=== PATIENT | female | born 1945 | race Caucasian/White ===

== ENCOUNTER 2023-09-01 15:34 | Emergency (ER) | payer MEDICARE, SELFPAY ==
[2023-09-01 15:38] VITALS: BP 144/91
[2023-09-01] MEDS: NORCO 5/325 1 TABLET PO (19:22)
--- NOTE | 2023-09-01 20:31 | ED.MUSCINJ ---
HPI-Injury
General
Chief Complaint: Musculo-Skeletal Complaint
Source: patient
Exam Limitations: none
Time Seen by Provider: 09/01/23 17:58
Nursing documentation reviewed up to this point in time: agreed with
Travel History
Have you had any contact with someone who has COVID-19?: No
Do you have any symptoms of coronavirus? Fever > 100 degrees, chills, cough, shortness of breath, sore throat, loss of taste or smell, muscle aches, or headache?: No
History of Present Illness-Injury
Is this injury a work related problem?: No
Is pt an associate of [facility]?: No
Initial Injury comments:
Patient to ED with complaint of pain to right knee. States she has had knee pain for a while but today she ran to the bathroom and twisted. COmplains of pain to posterior right knee radiating down right leg. Incident occurred this AM
Past History
Past History
ED Past Medical History: None
Review of Systems
Review of Systems
Allergies reviewed?: Yes
All Other Systems: ROS reviewed and negative except as documented in HPI and ROS
Constitutional: Reports no symptoms
Musculoskeletal: Reports joint pain (Pain to right posterior knee)
Skin: Reports no symptoms
Neurological: Reports no symptoms
Psychiatric: Reports no symptoms
Musculoskeletal Injury Exam
Musculoskeletal Injury Exam
Right Posterior Knee:
Pain with Movement?: Moderate
Tender to palpation?: Moderate
Soft tissue swelling?: None
External deformity and angulation?: None
Joint effusion?: None
Contusion?: None
Hematoma-local bleeding into tissue?: None
Strain- Sprain- Tear (Connective tissue injury)?: Moderate
Crepitus with movement?: No
Joint instability?: No
Malalignment/deformity?: No
Range of motion: Limited
Distal skin color and temperature: normal-warm & good color
Capillary Refill: normal
Normal distal neurovascular exam?: Yes
Peripheral Pulses: posterior tibial (right): 3+ and dorsalis pedis (right): 3+
Phy Exam
General Physical Exam
General Presentation: well appearing and no apparent distress
General age: appears stated age
General Skin: warm and dry
General Habitus: normal
General Mental: alert
Musculoskeletal Exam
Musculoskeletal Exam: neuro vasc intact
Skin Exam
Skin Exam: normal color, warm/dry and no rash
Psychiatric Exam
Psychiatric Exam: normal mood/affect
Injury Course
Orders/Labs/Results
Orders:
Orders
09/01/23 18:05
Knee, Right 4 or More Views [CR Knee- Right 4 Or More View*] Urgent
Comment:
Reason For Exam: knee pain
09/01/23 19:14
Knee Immobilizer Right-Treatme ONCE
Hydrocodone 5/APAP 325 [[place] 5/325] 1 tablet PO NOW STA
*Radiology
Radiology exam reviewed: radiology read reviewed
*Critical Care Note
Total Time (30-74mins, 75-104mins- exclusive of procedures): Not Applicable
ED Attending Note
-
Portions of this chart may have been created with voice recognition software.� Occasional wrong word or��sound alike� substitutions may have occurred due to the inherent limitations of voice recognition software.
Discharge Plan
Departure
Patient Disposition: Home (Routine Discharge)
Date of Disposition: 09/01/23
Time of Disposition: 19:14
Patient with high blood pressure during this ER visit?: No
Condition: Good
Covid-19: Not Applicable
Discharge Problem:
Knee sprain
Instructions: Knee Immobilizer (DC), Knee Sprain (DC), Using Cold for Pain
Prescriptions:
New
hydrocodone-acetaminophen 5-325 mg tablet
1 tab PO Q4H PRN (Reason: Pain) Qty: 10 0RF
No Action
multivitamin [One Daily Multivitamin] 1 EACH tablet
1 ea PO .HALF BID
Patient Comments:
1/2 half bid
calcium carb-mag ox-zinc sulf 1 EACH tablet
1 ea PO .Q OTHER DAY
lisinopril 20 MG tablet
20 mg PO .AM
cholecalciferol (vitamin D3) [Vitamin D3] 1,000 UNIT capsule
1,000 unit PO DAILY
memnj-ii-3-sws-upb-aiyryjw-ast [krill oil] 1 EACH capsule
1 ea PO .Q OTHER DAY
L.acidoph, paracasei,B. lactis 1 EACH capsule
1 tab PO .AM
Eye Drops
1 drops BOTH EYES PRN PRN (Reason: dry eyes)
Potassium
550 mg PO .HALF Q OTHER DAY
Vitamin B12
500 mg PO .AM
celecoxib 200 MG capsule
200 mg PO BID Qty: 30 0RF
Rx Instructions:
use around the clock for first 3-4d, then switch to as needed for mild pain
acetaminophen 325 MG tablet
1,000 mg PO Q6H 0RF
Rx Instructions:
suggest alternate with Celebrex, use every 6h for the first 2-3d until pain subsides, then can use as needed. REPLACE with [place] if pain is too severe-- do not combine them
hydrocodone-acetaminophen 1 TABLET tablet
1 tab PO Q4HPRN PRN (Reason: moderate pain) Qty: 20 0RF
Rx Instructions:
can increase to 2tabs every 4h for severe pain
docusate sodium 100 MG capsule
100 mg PO BID Qty: 1 0RF
Rx Instructions:
can increase to 2 BID if no BM in >24h, decrease or stop if stools too loose
Referrals:
Kirstie Robertson PA-C [Family Provider] -
Activity Restrictions/Additional Instructions:
Follow up with your orthopedic provider.
Interventions
Interventions:
*Risk Screen - Suicide Last Done: 09/01/23 18:27
*General Assessment Last Done: 09/01/23 18:27
*Neglect/Abuse Screening Last Done: 09/01/23 18:27
ED- Fall Risk Assessment Last Done: 09/01/23 18:28
*ED COVID-19 Vaccine History Last Done: 09/01/23 18:27
*Nursing Disposition Last Done: 09/01/23 19:37
ED-Musculoskeletal Assessment Last Done: 09/01/23 18:27
Discharge Date and Time
Discharge Date/Time: 09/01/23 19:38
Print Language: GUATEMAL[place]
== END 2023-09-01 19:38 | disposition home or self-care (01) ==
LOC: EMR 15:34
PROVIDERS: EMERGENCY PHYSICIAN Emergency Medicine; FAMILY PHYSICIAN Physician Assistant Medical
DX: S83.91XA Sprain of unspecified site of right knee, initial encounter (principal); X50.1XXA Overexertion from prolonged static or awkward postures, initial encounter
CPT/HCPCS: 99283; 29505; 73564

== ENCOUNTER → 2024-01-28 11:46 | Outpatient (REF) | payer MEDICARE, SELFPAY | LOC: WDC 11:46 | PROVIDERS: ATTENDING PHYSICIAN Physician Assistant Medical | DX: Z12.31 Encounter for screening mammogram for malignant neoplasm of breast (principal) | CPT/HCPCS: 77063; 77067 ==

== ENCOUNTER → 2025-01-31 12:01 | Outpatient (REF) | payer MEDICARE, SELFPAY | LOC: WDC 12:01 | PROVIDERS: ATTENDING PHYSICIAN Physician Assistant Medical | DX: Z12.31 Encounter for screening mammogram for malignant neoplasm of breast (principal) | CPT/HCPCS: 77063; 77067 ==